=== PATIENT | female | born 1970 | race Two or more races ===

== ENCOUNTER 2016-12-29 08:07 | Emergency (ER) | payer MEDICAID ==
[~2016-12-29] VITALS: Ht 157.5 cm; Wt 78.5 kg
[2016-12-29 08:50] LABS: Urine Bilirubin Negative (Negative); Urine Blood TRACE /uL (Negative); Urine Color Yellow (Yellow); Urine Glucose Normal (Normal); Urine Ketone Negative (Negative); Urine Nitrite Negative (Negative); Urine RBC 1 /hpf (0 - 4); Urine Squamous Epithelial Cell FEW /hpf (<5); Urine Urobilinogen Normal (Negative)
[2016-12-29 08:50] LABS: Basophils # (auto) 0 uL; Basophils % (auto) 0.1 % (0.0-2.0); DEFINITIVE VIEW TRANSMISSION; Eosinophils # (auto) 0.1 uL; Eosinophils % (auto) 1.3 % (0.0-7.0); Hemoglobin 13.3 g/dL (12.2-16.2); Lymphocytes % (auto) 27.2 % (10.0-50.0); Mean Corpuscular Hemoglobin 26.7 pg (28.0-32.0); Mean Corpuscular Hgb Conc. 33.2 g/dL (32.0-36.0); Mean Corpuscular Volume 80.2 fL (80.0-100.0); Mean Platelet Volume 11.3 fL (7.4-10.4); Monocytes # (auto) 0.4 uL; Monocytes % (auto) 5.4 % (0.0-12.0); Neutrophils # (auto) 4.9 uL; Platelet Count (auto) 197 10^3/uL (140-450); Red Cell Distribution Width 14.9 % (11.6-16.0); SUSPECT VIEW TRANSMISSION; White Blood Cell 7.4 10^3/uL (4.4-10.8)
[2016-12-29 09:27] LABS: Albumin 3.6 g/dL (3.4-5.0); BUN/Creatinine Ratio 18.2; Bilirubin, Total 0.4 mg/dL (0.2-1.0); Calcium 8.8 mg/dL (8.5-10.1); Potassium 4.5 mmol/L (3.5-5.1); Total Protein 7.9 g/dL (6.4-8.2)
[2016-12-29] MEDS: SODIUM CHLORIDE 0.9% 1,000 ML IV ONE (09:58)
[2016-12-29] MEDS: NALBUPHINE HCL 10 MG/1ml INJECTION IV ONE (10:32)
[2016-12-29] MEDS: ONDANSETRON HCL 4 MG/2 ML VIAL IV ONE (10:32)
[2016-12-29 10:40] VITALS: BP 119/86
== END 2016-12-29 12:11 | disposition home or self-care (01) ==
LOC: ER 08:07
DX: N94.3 Premenstrual tension syndrome (principal); E11.9 Type 2 diabetes mellitus without complications; Z98.890 Other specified postprocedural states
CPT/HCPCS: 36415; 71010; 74176; 80053; 81001; 81025; 85025; 94761; 96361; 96374; 96375; 99285; J2300; J2405; J7030